=== PATIENT | male | born 1955 | race Caucasian/White ===

== ENCOUNTER 2022-03-14 11:41 | Inpatient (IN) ==
--- NOTE | 2022-03-14 12:24 | Emergency Department Note ---
Impression & Plan LLL pneumonia, Acute respiratory failure with hypoxia, Elevated troponin ED Provider Note Name: JESUS PARISH Age: 66 Sex: M Arrives Via: Walk-In Informant: Patient, ED Provider: Sherman Milligan MD Chief Complaint: Illness Impression: As per impressions above Medical Decision Making: Pleasant 66-year-old gentleman with a history of hypertension, dyslipidemia, type 2 diabetes, hypothyroidism, arthritis who arrives from outside the area for worsening weakness, confusion and shortness of breath. On arrival he is significantly hypoxic and is quite confused but after placing him on nasal cannula O2 his mental status vastly improved. On examination he is not dehydrated appearing. He does have decreased breath sounds throughout with crackles bilaterally. Laboratory work-up including blood cultures and lactate were obtained. Lactate is unremarkable and is not hypotensive. He does not meet criteria nor do I feel he is in acute septic shock. He likely does have sepsis secondary to a left lower lobe pneumonia noted on chest x-ray. However given the recent travel and the quite elevated D-dimer a CT of the chest was obtained. Fortunately this is negative for PE though does show the the left lower lobe pneumonia. Labs are negative for COVID at this time. He was given empiric IV antibiotics of cefepime for broad coverage. His magnesium is mildly low this troponin is mildly elevated. Given the acute infection I suspect the troponin is more due to infectious rather than ACS etiology and he has no chest pain at this time. He was given some fluids though he is not severely dehydrated and has a set not hypotensive is lactic acid elevated thus 30/kg not indicated at this time. On multiple reevaluations vacation awake alert oriented breathing comfortably and looks much better now that he is on oxygen. I had a long discussion regarding the findings and he is agreeable to hospitalization. is on board with this as well Triage/Nursing Notes reviewed by Me Differentials:Infection, dehydration, metabolic abnormality, hypo/hyperglycemia, electrolyte disturbance, anemia, hypoxia, cardiac sources, intracerebral event, toxicologic, neurologic, as well as other pathologies. Vital Signs: reviewed and remarkable for hypoxia Interventions: Normal saline bolus, cefepime IV Labs:Reviewed and remarkable for elevated troponin, elevated D-dimer, low magnesium Imagin view chest x-ray left lower lobe infiltrate as per radiology. CT PE study reveals left lower lobe infiltrate as per radiologist EKG:Indication confusion and weakness: 80 bpm with sinus rhythm with first- degree AV block. There is a QTC of 392. There is no ectopy nor acute ischemia. There are no previous EKGs for comparison. Cardiac/Tele Monitoring: Cardiac Monitoring: An Order was placed for continuous cardiac monitoring. The monitor shows a rate of 80with a normal sinus rhythm. Consults:Hospitalist Plan: Disposition:Hospitalization. Condition: Good History of Present Illness:66 yr old male with worsening shortness of breath over the last few days. Notes feeling lightheaded, weak and exhausted. Associated with mild cough. No fevers, chills, chest pain, back pain, abdominal pain, nausea, vomiting, headache, neck pain, leg swelling, rashes, nor other symptoms. Denies calf pain/discomfort. No medications prior to arrival. States he has been noting episodes of shortness of breath on and off over the last month or so, though admits he didn't mention that to anyone until the last 3 days. notes he is confused and not himself the last few days. They are visiting from [place]. ROS: See above HPI for pertinent positives & negatives. A total of 10 systems reviewed and were otherwise negative. Past Medical History:Hypertension, dyslipidemia, type 2 diabetes, hypothyroidism, arthritis Past Surgical History:Cholecystectomy Family History:Denies family history of DVT or PE Social History:Lives with , retired, non-smoker Home Medications:Calcium, aspirin, amlodipine, vitamin D3, losartan, glimepiride, carvedilol, gabapentin, levothyroxine, metformin, atorvastatin, glucosamine Allergies:Cipro Vitals:Blood Pressure: 140/70, Pulse 85, RR 24, T 37.2C, O2 92% on 4L NC Physical Exam: GENERAL: Patient is tired appearing and in mild distress. EYES: No scleral icterus, unremarkable pupils. ENT: Mucous membranes moist, no nasal congestion. NECK: No masses appreciated, nomeningismus, trachea is midline. RESPIRATORY: No dyspnea. Clear to auscultation and equal bilaterally. No wheeze, no rhonchi. CARDIOVASCULAR: Regular rate and rhythm.No murmurs, rubs, gallops appreciated. GASTROINTESTINAL: Abdomen soft, non-tender, no peritonitis.Bowel sounds positive.No masses appreciated. BACK: No midline tenderness, no CVA tenderness EXTREMITIES: Normal motion all extremities, no cyanosis, no edema. NEUROLOGIC: Alert and oriented, no acute motor or sensory deficits, no focal weakness, cranial nerves grossly intact. SKIN: No rash, no jaundice, no diaphoresis. PSYCH: Appropriate GCS: 15 ED Course: Times/Reassessments: Patient much improved with nasal cannula oxygen he is breathing comfortably and is no distress. He is agreeable to hospitalization Sherman Milligan MD Past Med/Surg History Surgical History (Updated 03/14/22 @ 16:23 by Leann Cook PA-C) History of ankle surgery Hx of foot surgery Left 5th metatarsal removal S/P cholecystectomy 1999 S/P surgical removal of pilonidal cyst 1996 Family History (Updated 03/14/22 @ 16:25 by Leann Cook PA-C) Sister Breast cancer Mother Diabetes Heart disease Hypertension Father Diabetes Heart disease Hypertension Brother Heart disease Hypertension Social History (Updated 03/14/22 @ 16:27 by Leann Cook PA-C) Smoking Status: Light tobacco smoker Tobacco Type: Cigars Do You Dip or Chew Tobacco: No; Hx Alcohol Use: Yes Alcohol type: other Hx Substance Use: No Preferred Language: Nigerian Communication Ability: Effective 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 Beliefs That Will Affect Care: None marital status: Current Living Situation: Spouse Feels Safe at Home: Yes Safety Concerns: Feels Safe At This Time Assistive Devices: None Allergies Allergies Allergy/AdvReac Type Severity Reaction Status Date / Time ciprofloxacin Allergy Intermediate Hives Verified 03/14/22 15:22 Home Meds Home Medications Medication Instructions Recorded Confirmed amlodipine 10 mg tablet 10 mg PO DAILY 03/14/22 03/14/22 aspirin 325 mg tablet,delayed 325 mg PO DAILY 03/14/22 03/14/22 release atorvastatin 20 mg tablet 20 mg PO HS 03/14/22 03/14/22 calcium carbonate 600 mg-vitamin 1 tab PO DAILY 03/14/22 03/14/22 D3 10 mcg (400 unit) tablet (Calcium 600 + D(3)) carvedilol 12.5 mg tablet 12.5 mg PO BID 03/14/22 03/14/22 cholecalciferol (vitamin D3) 25 25 mcg PO DAILY 03/14/22 03/14/22 mcg (1,000 unit) capsule (Vitamin D3) gabapentin 600 mg tablet 600 mg PO BID 03/14/22 03/14/22 glimepiride 4 mg tablet 4 mg PO BID 03/14/22 03/14/22 glucosamine sulf dipot 1 cap PO TID 03/14/22 03/14/22 chlr,msm,chond 550 mg-C 30 mg-cheikh 1 mg capsule (Glucosamine Chondroitin) hydrochlorothiazide 25 mg tablet 25 mg PO DAILY 03/14/22 03/14/22 insulin aspar prt-insulin aspart 37 unit SUBCUT BID 03/14/22 03/14/22 100 unit/mL (70-30) subcutaneous soln (Novolog Mix 70-30 U-100 Insuln) insulin aspart U-100 100 unit/mL 0 sliding scale dose SUBCUT ACHS 03/14/22 03/14/22 (3 mL) subcutaneous pen (Novolog Flexpen U-100 Insulin aspart) levothyroxine 88 mcg tablet 88 mcg PO DAILY 03/14/22 03/14/22 losartan 100 mg tablet 100 mg PO DAILY 03/14/22 03/14/22 metformin 500 mg tablet See Rx Instructions .ROUTE .COMPLEX 03/14/22 03/14/22 Results & Data (ED) Vital Signs Vital Signs - 24 hr 03/14/22 11:46 03/14/22 12:00 Temperature 37.2 C Temperature Source Oral Pulse Rate 93 H Pulse Rate [Apical] 85 Pulse Rhythm [Apical] Regular Pulse Strength [Apical] Normal Respiratory Rate 16 24 Respiratory Effort / Characteristics Non-Labored Other Respiratory Depth Normal Respiratory Pattern Tachypnea Blood Pressure 140/77 Blood Pressure [Left Arm] 140/70 Blood Pressure Mean 98 Blood Pressure Mean [Left Arm] 93 Blood Pressure Position [Left Arm] Lying Pulse Oximetry 92 92 Oxygen Delivery Method Room Air Nasal Cannula Oxygen Flow Rate 4 Sepsis Recent Fever Within 48 Hours No Sepsis New/Unexplained Change in Mental Status No Sepsis Action Taken by Nursing No Action Required Laboratory Data Result diagrams: 03/16/22 05:27 03/16/22 05:27 Lab Results 03/14/22 03/14/22 03/14/22 Range/Units 11:58 12:35 12:35 WBC 11.68 H (4.8-10.8) K/uL RBC 4.48 L (4.7-6.1) M/uL Hgb 12.5 L (14.0-18.0) g/dL Hct 37.9 L (42-52) % MCV 84.6 (80-100) fL MCH 27.9 (25-34) pg MCHC 33.0 (32-36) g/dL RDW Std Deviation 44.9 (36.4-46.3) fL RDW Coeff of James 14.5 (11.5-14.5) % Plt Count 258 (130-400) K/uL MPV 9.5 (7.4-10.4) fL Immature Gran % (Auto) 0.3 % Neut % (Auto) 77.1 % Lymph % (Auto) 8.8 % Faulk % (Auto) 13.4 % Eos % (Auto) 0.2 % Baso % (Auto) 0.2 % Neut # (Auto) 9.02 H (1.4-6.5) K/uL Lymph # (Auto) 1.03 L (1.2-3.4) K/uL Faulk # (Auto) 1.56 H (0.11-0.59) K/uL Eos # (Auto) 0.02 (0-0.5) K/uL Baso # (Auto) 0.02 (0-0.2) K/uL Immature Gran # (Auto) 0.03 H (0.00-0.02) K/uL PT (9.0-12.0) Seconds INR (0.9-1.1) D-Dimer (0-500) ug/L FEU VBG pH (7.36-7.41) VBG pCO2 (38-50) mmHg VBG pO2 mmHg VBG HCO3 mmol/L VBG O2 Saturation % VBG Base Excess mEq/L Sodium (136-145) mmol/L Potassium (3.5-5.1) mmol/L Chloride (98-107) mmol/L Carbon Dioxide (21-32) mmol/L Anion Gap (3-11) BUN (6-23) mg/dl Creatinine (0.6-1.4) mg/dl Est Cr Clr Drug Dosing ml/min Est GFR ( Amer) ml/min Est GFR (Non-Af Amer) ml/min BUN/Creatinine Ratio (10-20) Glucose (70-99(Fasting)) mg/dl POC Glucose 182 H (70-99) mg/dl Lactate 1.0 (0.4-2.0) mmol/L Calcium (8.5-10.1) mg/dl Magnesium (1.7-2.4) mg/dl Total Bilirubin (0.2-1.0) mg/dl Direct Bilirubin (0-0.2) mg/dl AST (13-39) U/L ALT (7-52) U/L Alkaline Phosphatase (34-104) U/L Troponin I High Sens (0-20) pg/ml Total Protein (6.0-8.3) gm/dl Albumin (3.4-5.0) gm/dl Procalcitonin (0-0.5) ng/ml SARS-CoV-2 (PCR) (Negative) Influenza Type A (PCR) (Neg) Influenza Type B (PCR) (Neg) RSV (RT-PCR) (Neg) 03/14/22 03/14/22 03/14/22 Range/Units 12:35 12:35 12:35 WBC (4.8-10.8) K/uL RBC (4.7-6.1) M/uL Hgb (14.0-18.0) g/dL Hct (42-52) % MCV (80-100) fL MCH (25-34) pg MCHC (32-36) g/dL RDW Std Deviation (36.4-46.3) fL RDW Coeff of James (11.5-14.5) % Plt Count (130-400) K/uL MPV (7.4-10.4) fL Immature Gran % (Auto) % Neut % (Auto) % Lymph % (Auto) % Faulk % (Auto) % Eos % (Auto) % Baso % (Auto) % Neut # (Auto) (1.4-6.5) K/uL Lymph # (Auto) (1.2-3.4) K/uL Faulk # (Auto) (0.11-0.59) K/uL Eos # (Auto) (0-0.5) K/uL Baso # (Auto) (0-0.2) K/uL Immature Gran # (Auto) (0.00-0.02) K/uL PT (9.0-12.0) Seconds INR (0.9-1.1) D-Dimer (0-500) ug/L FEU VBG pH 7.39 (7.36-7.41) VBG pCO2 42 (38-50) mmHg VBG pO2 37 mmHg VBG HCO3 25 mmol/L VBG O2 Saturation 66.5 % VBG Base Excess 0.3 mEq/L Sodium 132 L (136-145) mmol/L Potassium 4.5 (3.5-5.1) mmol/L Chloride 98 (98-107) mmol/L Carbon Dioxide 26 (21-32) mmol/L Anion Gap 8 (3-11) BUN 33 H (6-23) mg/dl Creatinine 1.63 H (0.6-1.4) mg/dl Est Cr Clr Drug Dosing 64.7 ml/min Est GFR ( Amer) 50.1 ml/min Est GFR (Non-Af Amer) 43.3 ml/min BUN/Creatinine Ratio 20.2 H (10-20) Glucose 204 H (70-99(Fasting)) mg/dl POC Glucose (70-99) mg/dl Lactate (0.4-2.0) mmol/L Calcium 9.2 (8.5-10.1) mg/dl Magnesium 1.6 L (1.7-2.4) mg/dl Total Bilirubin 1.0 (0.2-1.0) mg/dl Direct Bilirubin 0.2 (0-0.2) mg/dl AST 42 H (13-39) U/L ALT 35 (7-52) U/L Alkaline Phosphatase 54 (34-104) U/L Troponin I High Sens 51.1 H* (0-20) pg/ml Total Protein 7.3 (6.0-8.3) gm/dl Albumin 3.5 (3.4-5.0) gm/dl Procalcitonin 0.47 (0-0.5) ng/ml SARS-CoV-2 (PCR) (Negative) Influenza Type A (PCR) (Neg) Influenza Type B (PCR) (Neg) RSV (RT-PCR) (Neg) 03/14/22 03/14/22 Range/Units 12:35 12:44 WBC (4.8-10.8) K/uL RBC (4.7-6.1) M/uL Hgb (14.0-18.0) g/dL Hct (42-52) % MCV (80-100) fL MCH (25-34) pg MCHC (32-36) g/dL RDW Std Deviation (36.4-46.3) fL RDW Coeff of James (11.5-14.5) % Plt Count (130-400) K/uL MPV (7.4-10.4) fL Immature Gran % (Auto) % Neut % (Auto) % Lymph % (Auto) % Faulk % (Auto) % Eos % (Auto) % Baso % (Auto) % Neut # (Auto) (1.4-6.5) K/uL Lymph # (Auto) (1.2-3.4) K/uL Faulk # (Auto) (0.11-0.59) K/uL Eos # (Auto) (0-0.5) K/uL Baso # (Auto) (0-0.2) K/uL Immature Gran # (Auto) (0.00-0.02) K/uL PT 11.9 (9.0-12.0) Seconds INR 1.1 (0.9-1.1) D-Dimer 2160 H* (0-500) ug/L FEU VBG pH (7.36-7.41) VBG pCO2 (38-50) mmHg VBG pO2 mmHg VBG HCO3 mmol/L VBG O2 Saturation % VBG Base Excess mEq/L Sodium (136-145) mmol/L Potassium (3.5-5.1) mmol/L Chloride (98-107) mmol/L Carbon Dioxide (21-32) mmol/L Anion Gap (3-11) BUN (6-23) mg/dl Creatinine (0.6-1.4) mg/dl Est Cr Clr Drug Dosing ml/min Est GFR ( Amer) ml/min Est GFR (Non-Af Amer) ml/min BUN/Creatinine Ratio (10-20) Glucose (70-99(Fasting)) mg/dl POC Glucose (70-99) mg/dl Lactate (0.4-2.0) mmol/L Calcium (8.5-10.1) mg/dl Magnesium (1.7-2.4) mg/dl Total Bilirubin (0.2-1.0) mg/dl Direct Bilirubin (0-0.2) mg/dl AST (13-39) U/L ALT (7-52) U/L Alkaline Phosphatase (34-104) U/L Troponin I High Sens (0-20) pg/ml Total Protein (6.0-8.3) gm/dl Albumin (3.4-5.0) gm/dl Procalcitonin (0-0.5) ng/ml SARS-CoV-2 (PCR) NEGATIVE (Negative) Influenza Type A (PCR) Negative (Neg) Influenza Type B (PCR) Negative (Neg) RSV (RT-PCR) Negative (Neg) Administered Medications Amlodipine Besylate (Amlodipine Besylate 5 Mg Tab) 10 mg PO DAILY TIANA Stop: 04/14/22 08:59 Last Admin: 03/16/22 08:13 Dose: 10 mg Documented by: [id number] Admin: 03/15/22 08:04 Dose: 10 mg Documented by: [id number] Aspirin (Aspirin 325 Mg Ectab) 325 mg PO DAILY TIANA Stop: 04/14/22 08:59 Last Admin: 03/16/22 08:13 Dose: 325 mg Documented by: [id number] Admin: 03/15/22 08:04 Dose: 325 mg Documented by: [id number] Atorvastatin Calcium (Atorvastatin 20 Mg Tab) 20 mg PO HS TIANA Stop: 04/13/22 20:59 Last Admin: 03/15/22 20:35 Dose: 20 mg Documented by: [id number] Admin: 03/14/22 21:42 Dose: 20 mg Documented by: [id number] Carvedilol (Carvedilol 12.5 Mg Tab) 12.5 mg PO BIDM TIANA Stop: 04/13/22 20:59 Last Admin: 03/16/22 08:10 Dose: 12.5 mg Documented by: [id number] Admin: 03/15/22 16:51 Dose: 12.5 mg Documented by: [id number] Admin: 03/15/22 08:05 Dose: 12.5 mg Documented by: [id number] Admin: 03/14/22 21:43 Dose: 12.5 mg Documented by: [id number] Doxycycline Hyclate (Doxycycline Hyclate 100 Mg Cap) 100 mg PO BID TIANA Stop: 03/21/22 20:59 Last Admin: 03/16/22 08:10 Dose: 100 mg Documented by: [id number] Admin: 03/15/22 20:35 Dose: 100 mg Documented by: [id number] Admin: 03/15/22 08:05 Dose: 100 mg Documented by: [id number] Admin: 03/14/22 21:41 Dose: 100 mg Documented by: [id number] Gabapentin (Gabapentin 600 Mg Tab) 600 mg PO BID [facility] Stop: 04/13/22 20:59 Last Admin: 03/16/22 08:10 Dose: 600 mg Documented by: [id number] Admin: 03/15/22 20:34 Dose: 600 mg Documented by: [id number] Admin: 03/15/22 08:06 Dose: 600 mg Documented by: [id number] Admin: 03/14/22 21:41 Dose: 600 mg Documented by: [id number] Guaifenesin (Guaifenesin 600 Mg Tabcr) 1,200 mg PO Q12 [facility] Stop: 04/13/22 20:59 Last Admin: 03/16/22 08:12 Dose: 1,200 mg Documented by: [id number] Admin: 03/15/22 20:31 Dose: 1,200 mg Documented by: [id number] Admin: 03/15/22 08:05 Dose: 1,200 mg Documented by: [id number] Admin: 03/14/22 21:41 Dose: 1,200 mg Documented by: [id number] Heparin Sodium (Porcine) (Heparin Sod 5,000 Unit/0.5 Ml Vial) 5,000 units SQ Q12 [facility] Stop: 04/13/22 20:59 Last Admin: 03/16/22 08:14 Dose: 5,000 units Documented by: [id number] Admin: 03/15/22 20:35 Dose: 5,000 units Documented by: [id number] Admin: 03/15/22 08:07 Dose: 5,000 units Documented by: [id number] Admin: 03/14/22 21:39 Dose: 5,000 units Documented by: [id number] Cefepime HCl 2,000 mg/ Syringe 20 mls @ 5 mls/min IV Q8H [facility]; Protocol Stop: 03/21/22 21:59 Last Admin: 03/16/22 05:52 Dose: 5 mls/min Documented by: [id number] Admin: 03/15/22 21:20 Dose: 5 mls/min Documented by: [id number] Admin: 03/15/22 15:58 Dose: 5 mls/min Documented by: [id number] Admin: 03/15/22 05:18 Dose: 5 mls/min Documented by: [id number] Admin: 03/14/22 21:43 Dose: 5 mls/min Documented by: [id number] Sodium Chloride (Nss 1000ml) 1,000 mls @ 125 mls/hr IV .Q8H [facility] Stop: 03/16/22 09:29 Last Admin: 03/16/22 02:26 Dose: 125 mls/hr Documented by: [id number] Infusion: 03/16/22 01:46 Dose: 125 mls/hr Documented by: [id number] Admin: 03/15/22 17:46 Dose: 125 mls/hr Documented by: [id number] Insulin Aspart (Insulin Aspart Per Unit) 0 units SC ACHS [facility]; Protocol Stop: 04/13/22 19:59 Last Admin: 03/16/22 08:08 Dose: 11 units Documented by: [id number] Cosigned by: [id number] Admin: 03/15/22 20:50 Dose: 3 units Documented by: [id number] Cosigned by: [id number] Admin: 03/15/22 16:50 Dose: 11 units Documented by: [id number] Cosigned by: [id number] Admin: 03/15/22 11:35 Dose: 16 units Documented by: [id number] Cosigned by: [id number] Admin: 03/15/22 07:53 Dose: 7 units Documented by: [id number] Cosigned by: [id number] Admin: 03/14/22 22:14 Dose: Not Given Documented by: [id number] Insulin Human NPH (Insulin Human Nph) 10 units SC BIDM [facility]; Protocol Stop: 04/14/22 16:59 Last Admin: 03/16/22 08:52 Dose: 10 units Documented by: [id number] Cosigned by: [id number] Levothyroxine Sodium (Levothyroxine Sodium 88 Mcg Tablet) [facility]: 04/14/22 06:29 Last Admin: 03/16/22 05:43 Dose: 88 mcg Documented by: [id number] Admin: 03/15/22 05:19 Dose: 88 mcg Documented by: [id number] Losartan Potassium (Losartan Potassium 50 Mg Tab) 100 mg PO DAILY [facility] Stop: 04/14/22 08:59 Last Admin: 03/15/22 08:03 Dose: 100 mg Documented by: [id number] Multivitamins/Minerals (Calcium 600mg + Vit D 400 Iu Tab) 1 tab PO DAILY TIANA Stop: 04/14/22 08:59 Last Admin: 03/16/22 08:13 Dose: 1 tab Documented by: [id number] Admin: 03/15/22 08:06 Dose: 1 tab Documented by: [id number] Vitamin D (Cholecalciferol 1,000 Units 25 Mcg Tab) 1,000 units PO DAILY TIANA Stop: 04/14/22 08:59 Last Admin: 03/16/22 08:13 Dose: 1,000 units Documented by: [id number] Admin: 03/15/22 08:04 Dose: 1,000 units Documented by: [id number] Discontinued Medications Sodium Chloride (Nss 1000ml) 500 mls @ 999 mls/hr IV .Q31M ONE Stop: 03/14/22 14:13 Last Infusion: 03/14/22 14:37 Dose: 0 mls/hr Documented by: [id number] Admin: 03/14/22 13:50 Dose: 999 mls/hr Documented by: [id number] Cefepime HCl (Maxipime) 2,000 mg in 20 mls @ 5 mls/min IV NOW STA; Protocol Stop: 03/14/22 14:32 Last Admin: 03/14/22 15:09 Dose: 5 mls/min Documented by: [id number] Magnesium Sulfate/Dextrose (Magnesium Sulfate / D5w) 1 gm in 100 mls @ 50 ml s/hr IV ONE ONE Stop: 03/14/22 21:14 Last Infusion: 03/14/22 22:29 Dose: 0 mls/hr Documented by: [id number] Admin: 03/14/22 19:40 Dose: 50 mls/hr Documented by: [id number] Sodium Chloride (Nss 1000ml) 1,000 mls @ 75 mls/hr IV .[id number] [facility]IANA Stop: 03/15/22 08:34 Last Infusion: 03/15/22 09:49 Dose: 0 mls/hr Documented by: [id number] Admin: 03/14/22 19:41 Dose: 75 mls/hr Documented by: [id number] Insulin Aspart (Insulin Aspart Per Unit) 0 units SC TODAY@0000,0400 [facility]; Protocol Stop: 03/15/22 04:01 Last Admin: 03/15/22 04:05 Dose: Not Given Documented by: [id number] Admin: 03/14/22 23:42 Dose: Not Given Documented by: [id number] Insulin Human NPH (Insulin Human Nph) 20 units SC BIDM TIANA; Protocol Stop: 04/13/22 19:59 Last Admin: 03/14/22 23:40 Dose: Not Given Documented by: [id number] Insulin Human NPH (Insulin Human Nph) 10 units SC BIDM [facility]IANA; Protocol Stop: 04/13/22 19:59 Last Admin: 03/15/22 07:55 Dose: 10 units Documented by: [id number] Cosigned by: [id number] Insulin Human NPH (Insulin Human Nph) 0 units SC DAILY@1700 [facility]NA; Protocol Stop: 04/14/22 16:59 Last Admin: 03/15/22 16:51 Dose: 10 units Documented by: [id number] Cosigned by: [id number] Ioversol (Optiray 320 125ml) 120 ml IV ONCE ONE Stop: 03/14/22 14:03 Last Admin: 03/14/22 14:03 Dose: 120 ml Documented by: [id number] Discharge Plan Visit Data Chief Complaint: Neuro Symptoms/Deficit Stated Complaint: WEAKNESS, CONFUSION, BALANCE ISSUES Discharge Problem: LLL pneumonia, Acute respiratory failure with hypoxia, Elevated troponin Patient Disposition: Admitted As Inpatient Discharge Instructions Interventions: ED Discharge Assessment Last Done: 03/14/22 23:15
[2022-03-14 12:54] LABS: Base Excess VBG 0.3 mEq/L; HCO3 VBG 25 mmol/L; Oxygen Saturation VBG 66.5 %; PCO2 VBG 42 mmHg (38-50); PO2 VBG 37 mmHg; pH VBG 7.39 (7.36-7.41)
[2022-03-14 13:11] LABS: INR 1.1 (0.9-1.1); Prothrombin Time 11.9 Seconds (9.0-12.0)
[2022-03-14 13:12] LABS: D Dimer 2160 ug/L FEU (0-500)
[2022-03-14 13:22] LABS: Troponin I High Sensitivity 51.1 pg/ml (0-20)
--- NOTE | 2022-03-14 13:22 | CT Scan Report ---
CT head/brain wo con CLINICAL HISTORY: Confusion, ataxia COMPARISON STUDY: No previous studies for comparison. CT DOSE: 1035.81 mGycm TECHNIQUE: Standard CT of the Brain was performed without IV contrast. A dose lowering technique was utilized adhering to the principles of ALARA. FINDINGS: Extraaxial space: There is no evidence for subdural hematoma. There are no extra-axial fluid collecti ons. Ventricles and cisterns: The ventricles are mildly dilated bilaterally. There is no evidence for midl ine shift or mass effect. Parenchyma: There is no subarachnoid or intraparenchymal hemorrhage. There is no evidence for an acut e infarct or cerebral edema. There is homogeneous attenuation of the brain parenchyma. Asymmetric bas al ganglia calcification is present on the right. There are no gross mass lesions. Osseous structures: There is no evidence for an acute fracture. The visualized paranasal sinuses are clear. The mastoid air cells are clear bilaterally. Soft tissues: There is no evidence for focal soft tissue swelling. IMPRESSION: 1. No acute intracerebral pathology. ACT 112: Negative or not required by law. Electronically signed by: Brad Maddox M.D. 03/14/2022 1:21 PM
[2022-03-14 13:27] LABS: Albumin Level 3.5 gm/dl (3.4-5.0); BUN Creatinine Ratio 20.2 (10-20); Bilirubin Direct 0.2 mg/dl (0-0.2); Calcium 9.2 mg/dl (8.5-10.1); Creatinine Clr Calc Pharmacy 64.7 ml/min; Est GFR (African American) 50.1 ml/min; Est GFR (Non-African American) 43.3 ml/min; Magnesium 1.6 mg/dl (1.7-2.4); Potassium 4.5 mmol/L (3.5-5.1); Total Protein 7.3 gm/dl (6.0-8.3)
[2022-03-14] MEDS ORDERED: SODIUM CHLORIDE 0.9% 1000ML 500 ML IV ONE (13:43)
[2022-03-14 13:51] LABS: Basophils # (auto) 0.02 K/uL (0-0.2); Basophils % (auto) 0.2 %; Eosinophils # (auto) 0.02 K/uL (0-0.5); Eosinophils % (auto) 0.2 %; Hematocrit (blood only) 37.9 % (42-52); Hemoglobin 12.5 g/dL (14.0-18.0); Immature Granulocytes # (auto) 0.03 K/uL (0.00-0.02); Immature Granulocytes % (auto) 0.3 %; Lymphocytes # (auto) 1.03 K/uL (1.2-3.4); Lymphocytes % (auto) 8.8 %; Mean Corpuscular Hemoglobin 27.9 pg (25-34); Mean Corpuscular Volume 84.6 fL (80-100); Mean Platelet Volume 9.5 fL (7.4-10.4); Monocytes # (auto) 1.56 K/uL (0.11-0.59); Monocytes % (auto) 13.4 %; Neutrophils # (auto) 9.02 K/uL (1.4-6.5); Neutrophils % (auto) 77.1 %; Platelet Count 258 K/uL (130-400); RDW Coefficient of Variation 14.5 % (11.5-14.5); RDW Standard Deviation 44.9 fL (36.4-46.3); Red Blood Count 4.48 M/uL (4.7-6.1); White Blood Count 11.68 K/uL (4.8-10.8)
--- NOTE | 2022-03-14 13:55 | XRay Report ---
XR chest 1V portable CLINICAL HISTORY: shob TECHNIQUE: Single frontal radiograph of the chest was obtained. Comparison: None available at the time of this dictation. FINDINGS: No lines and tubes are seen. The cardiomediastinal silhouette is normal. Airspace opacity is in the l eft lower lung. No evidence of pleural effusion or pneumothorax. IMPRESSION: Left lower lung airspace opacity which may represent atelectasis, pneumonia, and/or aspiration. ACT 112: Negative or not required by law. Electronically signed by: Ralph Jim M.D. 03/14/2022 1:54 PM
[2022-03-14] MEDS ORDERED: OPTIRAY 320 125ml IV ONE (14:02)
[2022-03-14 14:24] LABS: Influenza A virus by PCR Negative (Neg); Influenza B virus by PCR Negative (Neg); RSV by PCR Negative (Neg); SARS CoV2 RNA(COVID-19) InHosp NEGATIVE (Negative)
[2022-03-14] MEDS ORDERED: CEFEPIME 2,000 MG/20 ML VIAL IV STA (14:29)
--- NOTE | 2022-03-14 15:18 | History & Physical Report ---
Date of Service March 14, 2022 Assessment & Plan (1) Acute respiratory failure with hypoxia: (2) LLL pneumonia: Plan: - Admit to med surg with tele - Hypoxic with o2 sats in low 80s on room air, does not wear o2 at baseline, improved to mid 90s on 4 L via NC. - Sputum culture, mucinex, duonebs QID and Q2H prn, tessalon pearls - Influenza swab neg, negative COVID - WBC at time of admission = 11.68, afebrile - BCx x 2, follow - Lactic acid = 1.0, Procalcitonin 0.47 - CXR and CTA reviewed as above showing the LLL pneumonia, no evidence of PE. - Continue antibiotic therapy with cefepime IV and doxycycline po - Elevated D-dimer of 2160, CTA is negative, will Doppler bilateral lower extremities to rule out clot with bilateral trace edema (3) HTN (hypertension): Plan: - May continue losartan, hold hydrochlorothiazide in the setting of possible CIRO, creatinine 1.63, BUN 33 however do not know baseline kidney function -Continue IVF with NSS 125 mLX2 bags with slight hyponatremia, possibly elevated creatinine (4) Elevated troponin: Plan: - Troponin is 51.1 on admission, 50.6 on recheck, trend x2 more q6h - Patient denies any acute cardiac complaints -He has underwent heart catheterization before secondary to chest pain however was never formally diagnosed with any occlusions, no stents placed, and chest pain was chalked up to anxiety attacks. -Check 2D echo -Consider cardiology consult (5) HLD (hyperlipidemia): Plan: -Continue statin therapy, check lipid panel with a.m. labs (6) Obesity (BMI 30-39.9): Plan: -Diet and exercise to be encouraged throughout hospital stay (7) DM (diabetes mellitus) type II controlled, neurological manifestation: Plan: -Hold home glimepiride and metformin, holding NovoLog 70/30 mix 37 units twice daily for now -Glycemic pharmacy consulted -Continue ISS with Accu-Fly ACHS -Check A1c with a.m. labs (8) Neuropathy: Plan: -History of such, continue gabapentin DVT PPx: - teds, scds, heparin subcu CODE: Full code-patient initially states that he would not want to be intubated however he is agreeable in the setting of requiring this due to being admitted with pneumonia. Dispo: From home, likely to remain in the hospital x 1-2 days History of Present Illness Chief Complaint: Confusion Primary Care Provider: Ty Mercado MD This is a 66 yo M with PMHx of CAD, multiple heart catheterizations without stenting or acute findings, HTN, HLD, DM II, obesity with BMI of 37, hypothyroidism, neuropathy, who presents to the hospital with worsening confusion, shortness of breath, and generalized malaise over the past week, worsening in the past 3 days. His and sister are present at bedside and support the history. His notes that they are currently in on vacation to visit his sister and typically reside in [place]. She notes that the patient has not quite been himself for the past few days. He agrees with this and states that his symptoms of shortness of breath and generalized malaise really started approximately 1 week ago, worsened within the last 3 days. He denies any fevers chills or sweats, he admits to feeling very fatigued and having difficulty doing minimal ADLs. His notes this morning he was confused to the point where he was unable to perform his own insulin injection which he typically does without any difficulties. At baseline he does not wear any supplemental O2 except for CPAP at bedtime. He is vaccinated against COVID x2 and with a booster. Patient denies any known sick contacts, and reports that he has also had a decreased appetite over the past few days. His bowels and urination habits are normal. He is currently requiring 4 L of O2 and maintaining sats in the mid 90s. This drops into the mid 80s whenever I reduced his O2 flow to 3 L at bedside with just conversation. He denies any chest pain, heaviness. He does not have any underlying lung diseases. WBC found to be 11.68, negative COVID, D-dimer is elevated at 2160, negative CTA of the chest, started on IV cefepime and will add doxycycline. Allergies Allergy/AdvReac Type Severity Reaction Status Date / Time ciprofloxacin Allergy Intermediate Hives Verified 03/14/22 15:22 Home Medications Medication Instructions Recorded Confirmed Type amlodipine 10 mg tablet 10 mg PO DAILY 03/14/22 03/14/22 History aspirin 325 mg tablet,delayed 325 mg PO DAILY 03/14/22 03/14/22 History release atorvastatin 20 mg tablet 20 mg PO HS 03/14/22 03/14/22 History calcium carbonate 600 mg-vitamin 1 tab PO DAILY 03/14/22 03/14/22 History D3 10 mcg (400 unit) tablet (Calcium 600 + D(3)) carvedilol 12.5 mg tablet 12.5 mg PO BID 03/14/22 03/14/22 History cholecalciferol (vitamin D3) 25 25 mcg PO DAILY 03/14/22 03/14/22 History mcg (1,000 unit) capsule (Vitamin D3) gabapentin 600 mg tablet 600 mg PO BID 03/14/22 03/14/22 History glimepiride 4 mg tablet 4 mg PO BID 03/14/22 03/14/22 History glucosamine sulf dipot 1 cap PO TID 03/14/22 03/14/22 History chlr,msm,chond 550 mg-C 30 mg-cheikh 1 mg capsule (Glucosamine Chondroitin) hydrochlorothiazide 25 mg tablet 25 mg PO DAILY 03/14/22 03/14/22 History insulin aspar prt-insulin aspart 37 unit SUBCUT BID 03/14/22 03/14/22 History 100 unit/mL (70-30) subcutaneous soln (Novolog Mix 70-30 U-100 Insuln) insulin aspart U-100 100 unit/mL 0 sliding scale dose SUBCUT ACHS 03/14/22 03/14/22 History (3 mL) subcutaneous pen (Novolog Flexpen U-100 Insulin aspart) levothyroxine 88 mcg tablet 88 mcg PO DAILY 03/14/22 03/14/22 History losartan 100 mg tablet 100 mg PO DAILY 03/14/22 03/14/22 History metformin 500 mg tablet See Rx Instructions .ROUTE .COMPLEX 03/14/22 03/14/22 History Past Med/Surg History Surgical History (Updated 03/14/22 @ 16:23 by Leann Cook PA-C) History of ankle surgery Hx of foot surgery Left 5th metatarsal removal S/P cholecystectomy 1999 S/P surgical removal of pilonidal cyst 1996 Family History (Updated 03/14/22 @ 16:25 by Leann Cook PA-C) Sister Breast cancer Mother Diabetes Heart disease Hypertension Father Diabetes Heart disease Hypertension Brother Heart disease Hypertension Social History (Updated 03/14/22 @ 16:27 by Leann Cook PA-C) Smoking Status: Light tobacco smoker Tobacco Type: Cigars Do You Dip or Chew Tobacco: Yes (quit years ago, no longer chews); Hx Alcohol Use: No Hx Substance Use: No marital status: Current Living Situation: Spouse Feels Safe at Home: Yes Review of Systems Review of Systems: Constitutional: No fever, sweats or chills Eyes: No diplopia, no worsening or blurred vision ENT: normal hearing, no trouble swallowing Respiratory: No cough, sputum, dyspnea at rest + dyspnea on exertion and with ADLs Cardiovascular: No chest pain, tightness or palpitations Abdomen: No pain, nausea, vomiting, diarrhea or constipation, + decreased appetite Musculoskeletal: No joint pain, calf pain, swelling Neurologic: + increased confusion this morning as per HPI. No weakness, numbness/tingling, or balance problems Psychiatric: No anxiety or depression Skin: No rash or itch Physical Exam 2 Physical Exam: General: awake, alert, no apparent distress, + obese Head: Normocephalic, atraumatic ENT: PERRL, EOMI, no pharyngeal exudate, mucous membranes are dry Chest: + crackles in the LLL but otherwise clear throughout on for L via NC with O2 sats of 96% Cardiac: Regular rate and rhythm, no murmur, no JVD, normal peripheral pulses, good capillary refill Abdominal: NABS x 4 quadrants, soft, nondistended, nontender to palpation, no rebound or guarding Extremities: Normal inspection, + trace peripheral edema BLE, no erythema, calfs nontender to palpation Psych: Normal mood and affect Neuro: AAO x 3, strength intact bilaterally and rated 5/5, no motor deficits, speech is clear, no peripheral sensory deficits Results & Data Results & Data ([facility]) Vital Signs (Past 12 Hours) Vital Signs Temp Pulse Pulse Resp BP BP Pulse Ox 03/14/22 14:46 76 24 120/50 L 96 03/14/22 13:28 79 24 130/57 L 95 03/14/22 12:46 81 16 123/66 94 03/14/22 12:00 85 24 140/70 92 03/14/22 11:46 37.2 C 93 H 16 140/77 92 Laboratory Results 03/14/22 12:35 Aerobic Blood Culture - Pending Blood Anaerobic Blood Culture - Pending 03/14/22 12:35 Aerobic Blood Culture - Pending Blood Anaerobic Blood Culture - Pending 03/14/22 03/14/22 03/14/22 12:44 12:35 12:35 WBC RBC Hgb Hct MCV MCH MCHC RDW Std Deviation RDW Coeff of James Plt Count MPV Immature Gran % (Auto) Neut % (Auto) Lymph % (Auto) [place] % (Auto) Eos % (Auto) Baso % (Auto) Neut # (Auto) Lymph # (Auto) [place] # (Auto) Eos # (Auto) Baso # (Auto) Immature Gran # (Auto) PT 11.9 INR 1.1 D-Dimer 2160 H* VBG pH 7.39 VBG pCO2 42 VBG pO2 37 VBG HCO3 25 VBG O2 Saturation 66.5 VBG Base Excess 0.3 Sodium Potassium Chloride Carbon Dioxide Anion Gap BUN Creatinine Est Cr Clr Drug Dosing Est GFR ( Amer) Est GFR (Non-Af Amer) BUN/Creatinine Ratio Glucose POC Glucose Lactate Calcium Magnesium Total Bilirubin Direct Bilirubin AST ALT Alkaline Phosphatase Troponin I High Sens Total Protein Albumin Procalcitonin SARS-CoV-2 (PCR) NEGATIVE Influenza Type A (PCR) Negative Influenza Type B (PCR) Negative RSV (RT-PCR) Negative 03/14/22 03/14/22 03/14/22 12:35 12:35 12:35 WBC 11.68 H RBC 4.48 L Hgb 12.5 L Hct 37.9 L MCV 84.6 MCH 27.9 MCHC 33.0 RDW Std Deviation 44.9 RDW Coeff of James 14.5 Plt Count 258 MPV 9.5 Immature Gran % (Auto) 0.3 Neut % (Auto) 77.1 Lymph % (Auto) 8.8 [place] % (Auto) 13.4 Eos % (Auto) 0.2 Baso % (Auto) 0.2 Neut # (Auto) 9.02 H Lymph # (Auto) 1.03 L [place] # (Auto) 1.56 H Eos # (Auto) 0.02 Baso # (Auto) 0.02 Immature Gran # (Auto) 0.03 H PT INR D-Dimer VBG pH VBG pCO2 VBG pO2 VBG HCO3 VBG O2 Saturation VBG Base Excess Sodium 132 L Potassium 4.5 Chloride 98 Carbon Dioxide 26 Anion Gap 8 BUN 33 H Creatinine 1.63 H Est Cr Clr Drug Dosing 64.7 Est GFR ( Amer) 50.1 Est GFR (Non-Af Amer) 43.3 BUN/Creatinine Ratio 20.2 H Glucose 204 H POC Glucose Lactate Calcium 9.2 Magnesium 1.6 L Total Bilirubin 1.0 Direct Bilirubin 0.2 AST 42 H ALT 35 Alkaline Phosphatase 54 Troponin I High Sens 51.1 H* Total Protein 7.3 Albumin 3.5 Procalcitonin 0.47 SARS-CoV-2 (PCR) Influenza Type A (PCR) Influenza Type B (PCR) RSV (RT-PCR) 03/14/22 03/14/22 12:35 11:58 WBC RBC Hgb Hct MCV MCH MCHC RDW Std Deviation RDW Coeff of James Plt Count MPV Immature Gran % (Auto) Neut % (Auto) Lymph % (Auto) [place] % (Auto) Eos % (Auto) Baso % (Auto) Neut # (Auto) Lymph # (Auto) [place] # (Auto) Eos # (Auto) Baso # (Auto) Immature Gran # (Auto) PT INR D-Dimer VBG pH VBG pCO2 VBG pO2 VBG HCO3 VBG O2 Saturation VBG Base Excess Sodium Potassium Chloride Carbon Dioxide Anion Gap BUN Creatinine Est Cr Clr Drug Dosing Est GFR ( Amer) Est GFR (Non-Af Amer) BUN/Creatinine Ratio Glucose POC Glucose 182 H Lactate 1.0 Calcium Magnesium Total Bilirubin Direct Bilirubin AST ALT Alkaline Phosphatase Troponin I High Sens Total Protein Albumin Procalcitonin SARS-CoV-2 (PCR) Influenza Type A (PCR) Influenza Type B (PCR) RSV (RT-PCR) Diagnostic Findings Chest X-Ray 03/14/22 12:20 XR chest 1V portable CLINICAL HISTORY: shob TECHNIQUE: Single frontal radiograph of the chest was obtained. Comparison: None available at the time of this dictation. FINDINGS: No lines and tubes are seen. The cardiomediastinal silhouette is normal. Airspace opacity is in the left lower lung. No evidence of pleural effusion or pneumothorax. IMPRESSION: Left lower lung airspace opacity which may represent atelectasis, pneumonia, and/or aspiration. ACT 112: Negative or not required by law. Electronically signed by: Ralph Jim M.D. 03/14/2022 1:[address] 03/14/22 12:34 CT head/brain wo con CLINICAL HISTORY: Confusion, ataxia COMPARISON STUDY: No previous studies for comparison. CT DOSE: 1035.81 mGycm TECHNIQUE: Standard CT of the Brain was performed without IV contrast. A dose lowering technique was utilized adhering to the principles of ALARA. FINDINGS: Extraaxial space: There is no evidence for subdural hematoma. There are no extra-axial fluid collections. Ventricles and cisterns: The ventricles are mildly dilated bilaterally. There is no evidence for midline shift or mass effect. Parenchyma: There is no subarachnoid or intraparenchymal hemorrhage. There is no evidence for an acute infarct or cerebral edema. There is homogeneous attenuation of the brain parenchyma. Asymmetric basal ganglia calcification is present on the right. There are no gross mass lesions. Osseous structures: There is no evidence for an acute fracture. The visualized paranasal sinuses are clear. The mastoid air cells are clear bilaterally. Soft tissues: There is no evidence for focal soft tissue swelling. IMPRESSION: 1. No acute intracerebral pathology. ACT 112: Negative or not required by law. Electronically signed by: Brad Maddox M.D. 03/14/2022 1:21 PM Chest CTA 03/14/22 13:38 CT angio chest PE protocol CLINICAL HISTORY: Shortness of breath COMPARISON STUDY: Portable chest from 03/14/2022 CT DOSE: 926.97 mGy.cm TECHNIQUE: CT Angio of the chest was performed.followed by image post processing with coronal, and sagittal MIP reformats. Contrast Volume: Optiray 320, 120 ml FINDINGS: Vasculature: There is homogeneous perfusion of the pulmonary vasculature bilaterally. No intraluminal filling defects or evidence for pulmonary embolus is seen. Airway: The airway is clear. No endobronchial lesion is identified. Lungs: There is a confluent alveolar opacity the left lung base extending to the left hilum bronchograms. This has the characteristics of a pneumonia. There is crowding the bronchovascular markings at the right lung base with minimal right basilar atelectasis. Centrilobular emphysematous changes are also seen. No other alveolar opacities are identified. Pleura: There is no evidence for pleural effusion. There is no evidence for pneumothorax. Mediastinum: There is no evidence for pathologic adenopathy. The heart size is within normal limits. Atherosclerotic calcifications present. The thoracic aorta is within normal limits. There is no evidence for pericardial effusion. Upper abdomen: There is a small to moderate size hiatal hernia. Osseous structures: There is no acute osseous pathology. Impression: 1. No CTA evidence for pulmonary embolus. 2. Confluent alveolar opacity with air bronchograms the left lung base posteriorly characteristic of left lower lobe pneumonia. 3. Minimal right basilar atelectasis also present. 4. Small hiatal hernia. ACT 112: Negative or not required by law. Electronically signed by: Brad Maddox M.D. 03/14/2022 3:19 PM ECG Additional Comments: 14-MAR-2022 11:57:08 [facility]-EDSTAT ROUTINE RETRIEVAL Sinus rhythm with 1st degree A-V block Minimal voltage criteria for LVH, may be normal variant Borderline ECG No previous ECGs available 25mm/s10mm/[id number] 241CID: [id number] by: REFERRED SELF Unconfirmed Vent. rate 88 BPM MS interval 212 ms QRS duration 86 ms QT/QTc 324/392 ms P-R-T axes 15 -26 65 Code Status & VTE Plan Code Status Full code Supervising Physician Co-Signing Physician Notes Patient is a 66-year-old male with history of coronary artery disease, hypertension, hyperlipidemia, diabetes mellitus and other medical problems presents with worsening shortness of breath, intermittent confusion since past 3 days duration. He also admits to have mild cough. Denies any fever, chills, sick contact. Patient was noted to be transiently confused this morning and was unable to inject insulin on his own. He has history of obstructive sleep apnea and uses CPAP at bedtime. He denies any history of COPD, asthma, chronic oxygen dependency. Currently he is oriented x3 while in ED. He was found to be hypoxic while in ED requiring supplemental oxygen to maintain saturation. Please review HPI for complete details of presentation. Blood work showed leukocytosis 11.68K, hemoglobin 12.5, D-dimer 2160, VBG fairly within normal limit, sodium 132, creatinine 1.63, glucose 204, magnesium 1.6, AST 42, troponin 51.1. Procalcitonin, lactate within normal limits. Unknown baseline creatinine levels. On exam patient is obese, no apparent distress, normocephalic atraumatic, EOMI, normal breath sounds, clear to auscultation, S1-S2, no murmur, +1 bilateral pedal edema present, abdomen soft, nontender,+ umbilical hernia, normal bowel sounds, alert, awake, oriented, grossly no focal deficits. Patient is admitted for management of acute respiratory failure with hypoxia, left lower lobe pneumonia and metabolic encephalopathy. Confusion likely secondary to hypoxia. Will start on broad-spectrum antibiotics cefepime, doxycycline. Blood cultures obtained. Gentle IV fluids. Avoid nephrotoxic agents as able. Monitor renal function. Nebs as needed. Will check ammonia level. Check resting echo. Replace electrolytes. Check venous Dopplers to rule out DVT. Continue insulin for diabetes management. Trend cardiac enzymes and repeat EKG tomorrow. I personally reviewed the record. Patient is interviewed and examined at bedside. Patient's care is coordinated with Leann Cook PA-C. Please refer to the documentation above for details of patient's presentation and for discussion of other issues.
--- NOTE | 2022-03-14 15:21 | CT Scan Report ---
CT angio chest PE protocol CLINICAL HISTORY: Shortness of breath COMPARISON STUDY: Portable chest from 03/14/2022 CT DOSE: 926.97 mGy.cm TECHNIQUE: CT Angio of the chest was performed.followed by image post processing with coronal, and s agittal MIP reformats. Contrast Volume: Optiray 320, 120 ml FINDINGS: Vasculature: There is homogeneous perfusion of the pulmonary vasculature bilaterally. No intraluminal filling defects or evidence for pulmonary embolus is seen. Airway: The airway is clear. No endobronchial lesion is identified. Lungs: There is a confluent alveolar opacity the left lung base extending to the left hilum bronchogr ams. This has the characteristics of a pneumonia. There is crowding the bronchovascular markings at t he right lung base with minimal right basilar atelectasis. Centrilobular emphysematous changes are al so seen. No other alveolar opacities are identified. Pleura: There is no evidence for pleural effusion. There is no evidence for pneumothorax. Mediastinum: There is no evidence for pathologic adenopathy. The heart size is within normal limits. Atherosclerotic calcifications present. The thoracic aorta is within normal limits. There is no evide nce for pericardial effusion. Upper abdomen: There is a small to moderate size hiatal hernia. Osseous structures: There is no acute osseous pathology. Impression: 1. No CTA evidence for pulmonary embolus. 2. Confluent alveolar opacity with air bronchograms the left lung base posteriorly characteristic of left lower lobe pneumonia. 3. Minimal right basilar atelectasis also present. 4. Small hiatal hernia. ACT 112: Negative or not required by law. Electronically signed by: Brad Maddox M.D. 03/14/2022 3:19 PM
[2022-03-14] MEDS ORDERED: PHARMACY GLYCEMIC MGMT CONSULT PRN (18:41)
[2022-03-14] MEDS ORDERED: GLUCOSE 40% GEL 15 GM TUBE PO PRN (18:41)
[2022-03-14] MEDS ORDERED: ACETAMINOPHEN 325 MG TAB PO PRN (18:41)
[2022-03-14] MEDS ORDERED: DEXTROSE 50% 50 ML SYRINGE IV PRN (18:41)
[2022-03-14] MEDS ORDERED: ONDANSETRON INJ 2 MG/ML 2 ML VIAL IV PRN (18:41)
[2022-03-14] MEDS ORDERED: GLUCOSE 10 TABS/TUBE PO PRN (18:41)
[2022-03-14] MEDS ORDERED: GLUCAGON FOR INJ 1 MG VIAL SQ PRN (18:41)
[2022-03-14] MEDS ORDERED: CARBOHYDRATES FOR HYPOGLYCEMIA PO PRN (18:41)
[2022-03-14] MEDS ORDERED: ALBUT/IPRATROP 3MG/0.5MG NEB 3 ML VIAL NEB PRN (18:46)
[2022-03-14] MEDS ORDERED: ALBUT/IPRATROP 3MG/0.5MG NEB 3 ML VIAL NEB SCH (19:00)
[2022-03-14] MEDS ORDERED: MAGNESIUM SULFATE / D5W 1 GM/100 ML BAG IV ONE (19:15)
[2022-03-14] MEDS ORDERED: SODIUM CHLORIDE 0.9% 1000ML 1,000 ML IV SCH (19:15)
[2022-03-14] MEDS ORDERED: INSULIN HUMAN NPH SC SCH (20:00)
[2022-03-14] MEDS: HEPARIN SOD 5,000 UNIT/0.5 ML VIAL SQ SCH (21:39)
[2022-03-14] MEDS: DOXYCYCLINE HYCLATE 100 MG CAP PO SCH (21:41)
[2022-03-14] MEDS: GABAPENTIN 600 MG TAB PO SCH (21:41)
[2022-03-14] MEDS: guaiFENesin 600 MG TABCR PO SCH (21:41)
[2022-03-14] MEDS: ATORVASTATIN 20 MG TAB PO SCH (21:42)
[2022-03-14] MEDS: carvediloL 12.5 MG TAB PO SCH (21:43)
[2022-03-14] MEDS: CEFEPIME 2,000 MG in SYRINGE 0 ML IV SCH (21:43)
[2022-03-14] MEDS: INSULIN ASPART PER UNIT SC SCH ×2 (22:14→23:42)
[2022-03-15] MEDS: INSULIN ASPART PER UNIT SC SCH ×5 (04:05→20:50)
[2022-03-15 05:15] LABS: Hemoglobin 11.9 g/dL (14.0-18.0); Mean Corpuscular Hemoglobin 28.5 pg (25-34); Mean Corpuscular Hgb Conc 33.1 g/dL (32-36); Mean Corpuscular Volume 86.3 fL (80-100); Platelet Count 233 K/uL (130-400); RDW Coefficient of Variation 14.3 % (11.5-14.5); RDW Standard Deviation 45.5 fL (36.4-46.3); Red Blood Count 4.17 M/uL (4.7-6.1); White Blood Count 10.78 K/uL (4.8-10.8)
[2022-03-15] MEDS: CEFEPIME 2,000 MG in SYRINGE 0 ML IV SCH ×3 (05:18→21:20)
[2022-03-15] MEDS: LEVOTHYROXINE SODIUM 88 MCG TABLET PO SCH (05:19)
[2022-03-15 05:23] LABS: Albumin Globulin Ratio 0.9 (0.9-2); Albumin Level 3.2 gm/dl (3.4-5.0); Bilirubin,Total 0.7 mg/dl (0.2-1.0); Calcium 9.3 mg/dl (8.5-10.1); Chol HDL Ratio 5.1 (0-5); Creatinine Clr Calc Pharmacy 61.3 ml/min; Est GFR (African American) 46.3 ml/min; Globulin 3.7 gm/dl (2.5-4.0); Magnesium 1.9 mg/dl (1.7-2.4); Potassium 5.3 mmol/L (3.5-5.1); Total Protein 6.9 gm/dl (6.0-8.3)
[2022-03-15 05:40] LABS: Troponin I High Sensitivity 58.5 pg/ml (0-20)
--- NOTE | 2022-03-15 07:58 | Ultrasound Report ---
US venous doppler LE BI CLINICAL HISTORY: elevated trop, edema BLE TECHNIQUE: Bilateral lower extremity real-time compression venous ultrasound with Color Doppler imagi ng. Utilizing real-time ultrasonic imaging multiple real time high-resolution ultrasonic images with compression and noncompression maneuvers of the deep venous system in addition to color doppler imagi ng were performed from the common femoral vein through the proximal calf veins. COMPARISON: None available at the time of this dictation. FINDINGS: Currently there is normal compressibility of the deep venous system from the common femoral vein thro ugh the proximal calf veins. No superficial venous thrombosis is identified. Subcutaneous edema is noted. Impression: No evidence of deep venous thrombus. ACT 112: Negative or not required by law. Electronically signed by: Ralph Jim M.D. 03/15/2022 7:56 AM
[2022-03-15] MEDS ORDERED: INSULIN HUMAN NPH SC SCH ×2 (08:00→17:00)
[2022-03-15] MEDS: ASPIRIN 325 MG ECTAB PO SCH (08:04)
[2022-03-15] MEDS: amLODIPine BESYLATE 5 MG TAB PO SCH (08:04)
[2022-03-15] MEDS: CHOLECALCIFEROL 1,000 UNITS 25 MCG TAB PO SCH (08:04)
[2022-03-15] MEDS: guaiFENesin 600 MG TABCR PO SCH ×2 (08:05→20:31)
[2022-03-15] MEDS: carvediloL 12.5 MG TAB PO SCH ×2 (08:05→16:51)
[2022-03-15] MEDS: DOXYCYCLINE HYCLATE 100 MG CAP PO SCH ×2 (08:05→20:35)
[2022-03-15] MEDS: GABAPENTIN 600 MG TAB PO SCH ×2 (08:06→20:34)
[2022-03-15] MEDS: CALCIUM 600MG + VIT D 400 IU TAB PO SCH (08:06)
[2022-03-15] MEDS: HEPARIN SOD 5,000 UNIT/0.5 ML VIAL SQ SCH ×2 (08:07→20:35)
[2022-03-15] MEDS ORDERED: LOSARTAN POTASSIUM 50 MG TAB PO SCH (09:00)
[2022-03-15 09:01] LABS: Estimated Average Glucose 171 mg/dl; Hemoglobin A1C 7.6 % (4.5-5.6)
--- NOTE | 2022-03-15 10:37 | Pharmacy Report ---
Pharmacy Glycemic Short Note 2 - Date of Service March 15, 2022 - Glycemic Short BSG Results (Last 24 hours): 03/14/22 03/14/22 03/14/22 11:58 12:35 22:00 Glucose 204 H POC Glucose 182 H 120 H 03/14/22 03/15/22 03/15/22 23:24 03:56 04:49 Glucose 98 POC Glucose 109 H 103 H 03/15/22 07:28 Glucose POC Glucose 98 OUTPATIENT ANTIDIABETIC REGIMEN: * Novolog 70-30 mix 37 units BIDWM * Novolog sliding scale with meals for BSG >200mg/dL HbA1C: 7.6 (03/15) ASSESSMENT: * Patient is a well controlled type 2 diabetic admitted with pneumonia. Pharmacy consulted to assist with glycemic management. * Basal (70/30) converted to NPH on admission last evening (~weight/stress 2), however NPH was not documented as given. BSGs down into low 100s, 98mg/dL this AM. * Patient is tolerating a diet, on antibiotics, and NS @ 75ml/hr. SCr - 1.74mg/dL (unknown baseline). * Plan for a reduced dose of NPH this AM (10 units) given BSGs this morning. NPH evening scale. * Bolus insulin: Novolog per scale (~weight/stress of 2); may need loosened pending BSGs throughout the day PLAN FOR INPATIENT GLYCEMIC CONTROL: * Hold outpatient oral diabetes medications * Basal insulin * NPH 10 units with breakfast, evening scale with dinner * Bolus insulin * NovoLog per scale ACHS or Q6hrs while NPO * Goal Range: Low 110 mg/dL - High 140 mg/dL * Correction Factor: 20 mg/dL/unit * Nutritional / Prandial insulin per carb ratio of 1 unit per 6 grams CHO consumed
[2022-03-15 16:23] LABS: Appearance Urine Cloudy (Clear); Bacteria Urine Automated Negative (Negative); Bilirubin Urine Negative (Negative); Blood Urine 3+ (Negative); Color Urine Dark Yellow; Epithelial Cell Urine Auto >30 /lpf (0-5); Glucose Urine UA Negative (Negative); Ketones Urine Trace (Negative); Leukocyte Esterase Urine Negative (Negative); Nitrite Urine Negative (Negative); Protein Urine 2+ (Negative); Specific Gravity Urine 1.036 (1.000-1.030); Urobilinogen Urine Negative (Negative); pH Urine 5.5 (4.5-7.5)
[2022-03-15 16:43] LABS: Mucus Urine Present (None Prsent)
[2022-03-15 16:46] LABS: Amorphous Sediment Urine Present (None Prsent)
--- NOTE | 2022-03-15 17:00 | Hospitalist Progress Note ---
Date of Service March 15, 2022 Assessment & Plan (1) Acute respiratory failure with hypoxia: Plan: continues on supplemental oxygen for persistent hypoxia that is improved. Continue to encourage movement out of bed. Wean as tolerated (2) LLL pneumonia: Plan: Diabetic man with community-acquired pneumonia. Flu and COVID are negative. Sputum culture pending although patient has no cough at this time and is unable to expectorate sputum per his report. He feels much better today on IV antibiotics. No blood clot in the chest or legs with work-up. Continue antibiotics and supportive care. Pneumovax considered. (3) HTN (hypertension): Plan: hold losartan and HCTZ for the time being. BP is controlled. Cont to monitor on telemetry . (4) Elevated troponin: Plan: elevated trop suggestive of demand ischemia in setting of acute pulmonary infection. echo reveals no acute wall motion abnormalities. patient denies chest pain/SOB no further workup at this time. (5) HLD (hyperlipidemia): Plan: chronic, stable. Cont statin therapy per home regimen. (6) Obesity (BMI 30-39.9): Plan: -Diet and exercise to be encouraged throughout hospital stay (7) DM (diabetes mellitus) type II controlled, neurological manifestation: Plan: -Hold home glimepiride and metformin, holding NovoLog 70/30 mix 37 units twice daily for now -Glycemic pharmacy consulted -Continue ISS with Accu-Cheks ACHS -A1C 7.6 with goal <7.0. Encourage close follow-up wtih his PCP regarding being more aggressive with therapy and lifestyle modifications. (8) Neuropathy: Plan: chronic, controlled, cont gabapentin per home regimen. (9) CIRO (acute kidney injury): Plan: Creat still elevated. Cont holding HCTZ, and will also hold losartan. Urine studies. Will give a small amount of IVF overnight and trend creat in am. He is now eating and drinking better and feeling better. (10) DVT prophylaxis: Plan: Heparin full code Dispo-cont hospitalization pending resolution of hypoxia, pending PT/OT recommendations. Pt is from [place] (the [facility]) and needs to travel back after discharge. 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 Maricarmen Rose [facility] and [facility]ticipated Discharge Date Admission Date: March 14, 2022 Subjective 66-year-old man presents with acute hypoxia and shortness of breath x3 to 4 days. Work-up revealed left lower lobe pneumonia. He is remained afebrile overnight with improvement clinically on IV antibiotics. Notably per patient was not given home CPAP last night. The machine remains in the room on the shelf. Order was placed for this to happen tonight. The patient denies any coughing or other chest pain. He is not having any productive sputum. He is tolerating p.o. Review of Systems Review of Systems: All systems reviewed negative except as indicated above. Physical Exam Physical Exam: CONSTITUTIONAL: Obese, vitals as above, generally well- appearing, NAD EYES: normal conjunctivae, no scleral icterus ENT: external ear and nose normal, MMM NECK: trachea midline, RESPIRATORY: clear to auscultation bilaterally, decreased breath sounds at left base, no crackles, rales or wheezes, normal respiratory effort CARDIOVASCULAR: regular rate and rhythm, S1 and 2 heard without murmurs, gallops or rubs, no JVD, no peripheral edema CHEST: inspection of chest was normal GASTROINTESTINAL: soft, nontender, ND, no guarding MUSCULOSKELETAL: strength 5/5 throughout, head is normocephalic and atraumatic, neck supple, normal palpation of chest wall without tenderness SKIN: warm and dry NEUROLOGIC: CN 2-12 grossly intact, no sensory deficit, normal cognition, normal speech, no tremor PSYCHIATRIC: alert cooperative and oriented to person, place and time. Results & Data Results & Data ([facility]) Vital Signs (Past 12 Hours) Vital Signs Temp Pulse Resp BP BP Pulse Ox 03/15/22 11:31 37 C 66 18 115/59 L 94 03/15/22 08:00 78 106/53 L Laboratory Results Short CBC 03/15/22 Range/Units 04:49 WBC 10.78 (4.8-10.8) K/uL Hgb 11.9 L (14.0-18.0) g/dL Hct 36.0 L (42-52) % Plt Count 233 (130-400) K/uL BMP 03/15/22 04:49 Sodium 135 L Potassium 5.3 H Chloride 102 Carbon Dioxide 27 BUN 33 H Creatinine 1.74 H Glucose 98 Calcium 9.3 Liver Function 03/15/22 Range/Units 04:49 Total Bilirubin 0.7 (0.2-1.0) mg/dl AST 53 H (13-39) U/L ALT 35 (7-52) U/L Alkaline Phosphatase 50 (34-104) U/L Albumin 3.2 L (3.4-5.0) gm/dl Urine 03/15/22 Range/Units 15:30 Urine Color Dark Yellow Urine Appearance Cloudy A (Clear) Urine pH 5.5 (4.5-7.5) Ur Specific [place] 1.036 H (1.000-1.030) Urine Protein 2+ H (Negative) Urine Glucose (UA) Negative (Negative) Diagnostic Findings Venous Doppler Study 03/14/22 16:03 US venous doppler LE BI CLINICAL HISTORY: elevated trop, edema BLE TECHNIQUE: Bilateral lower extremity real-time compression venous ultrasound with Color Doppler imaging. Utilizing real-time ultrasonic imaging multiple real time high-resolution ultrasonic images with compression and noncompression maneuvers of the deep venous system in addition to color doppler imaging were performed from the common femoral vein through the proximal calf veins. COMPARISON: None available at the time of this dictation. FINDINGS: Currently there is normal compressibility of the deep venous system from the common femoral vein through the proximal calf veins. No superficial venous thrombosis is identified. Subcutaneous edema is noted. Impression: No evidence of deep venous thrombus. ACT 112: Negative or not required by law. Electronically signed by: Ralph Jim M.D. 03/15/2022 7:56 AM Medications Administered Current Inpatient Medications Acetaminophen (Acetaminophen 325 Mg Tab) 650 mg PO Q4H PRN PRN Reason: Moderate Pain Stop: 04/13/22 18:40 Albuterol (Albut/Ipratrop 3mg/0.5mg Neb 3 Ml Vial) 3 ml NEB Q4R PRN; Protocol PRN Reason: Shortness Of Breath Or Wheezing Stop: 04/13/22 18:59 Amlodipine Besylate (Amlodipine Besylate 5 Mg Tab) 10 mg PO DAILY [facility] Stop: 04/14/22 08:59 Last Admin: 03/15/22 08:04 Dose: 10 mg Documented by: Aspirin (Aspirin 325 Mg Ectab) 325 mg PO DAILY [facility] Stop: 04/14/22 08:59 Last Admin: 03/15/22 08:04 Dose: 325 mg Documented by: Atorvastatin Calcium (Atorvastatin 20 Mg Tab) 20 mg PO HS [facility] Stop: 04/13/22 20:59 Last Admin: 03/14/22 21:42 Dose: 20 mg Documented by: Carvedilol (Carvedilol 12.5 Mg Tab) 12.5 mg PO BIDM [facility] Stop: 04/13/22 20:59 Last Admin: 03/15/22 16:51 Dose: 12.5 mg Documented by: Dextrose (Dextrose 50% 50 Ml Syringe) 25 - 50 ml IV UD PRN; Protocol PRN Reason: Hypoglycemia Protocol Stop: 04/13/22 18:40 Doxycycline Hyclate (Doxycycline Hyclate 100 Mg Cap) 100 mg PO BID [facility] Stop: 03/21/22 20:59 Last Admin: 03/15/22 08:05 Dose: 100 mg Documented by: Gabapentin (Gabapentin 600 Mg Tab) 600 mg PO BID [facility] Stop: 04/13/22 20:59 Last Admin: 03/15/22 08:06 Dose: 600 mg Documented by: Glucagon (Glucagon For Inj 1 Mg Vial) 1 mg SQ UD PRN; Protocol PRN Reason: Hypoglycemia Protocol Stop: 04/13/22 18:40 Glucose (Glucose 10 Tabs/Tube) 4 - 8 tabs PO UD PRN; Protocol PRN Reason: Hypoglycemia Protocol Stop: 04/13/22 18:40 Glucose (Glucose 40% Gel 15 Gm Tube) 15 - 30 gm PO UD PRN; Protocol PRN Reason: Hypoglycemia Protocol Stop: 04/13/22 18:40 Guaifenesin (Guaifenesin 600 Mg Tabcr) 1,200 mg PO Q12 [facility] Stop: 04/13/22 20:59 Last Admin: 03/15/22 08:05 Dose: 1,200 mg Documented by: Heparin Sodium (Porcine) (Heparin Sod 5,000 Unit/0.5 Ml Vial) 5,000 units SQ Q12 [facility] Stop: 04/13/22 20:59 Last Admin: 03/15/22 08:07 Dose: 5,000 units Documented by: Cefepime HCl 2,000 mg/ Syringe 20 mls @ 5 mls/min IV Q8H [facility]; Protocol Stop: 03/21/22 21:59 Last Admin: 03/15/22 15:58 Dose: 5 mls/min Documented by: Insulin Aspart (Insulin Aspart Per Unit) 0 units SC ACHS [facility]; Protocol Stop: 04/13/22 19:59 Last Admin: 03/15/22 16:50 Dose: 11 units Documented by: Insulin Human NPH (Insulin Human Nph) 0 units SC DAILY@1700 [facility]; Protocol Stop: 04/14/22 16:59 Last Admin: 03/15/22 16:51 Dose: 10 units Documented by: Levothyroxine Sodium (Levothyroxine Sodium 88 Mcg Tablet) 88 mcg PO DAILYBB [facility] Stop: 04/14/22 06:29 Last Admin: 03/15/22 05:19 Dose: 88 mcg Documented by: Losartan Potassium (Losartan Potassium 50 Mg Tab) 100 mg PO DAILY [facility] Stop: 04/14/22 08:59 Last Admin: 03/15/22 08:03 Dose: 100 mg Documented by: Miscellaneous (Carbohydrates For Hypoglycemia ) 15 - 30 gm PO UD PRN PRN Reason: Hypoglycemia Protocol Stop: 04/13/22 18:40 Miscellaneous Information (Pharmacy Glycemic Mgmt Consult) 1 ea N/A UD PRN; Protocol PRN Reason: Consult Stop: 04/13/22 18:40 Multivitamins/Minerals (Calcium 600mg + Vit D 400 Iu Tab) 1 tab PO DAILY [facility] Stop: 04/14/22 08:59 Last Admin: 03/15/22 08:06 Dose: 1 tab Documented by: Ondansetron HCl (Ondansetron Inj 2 Mg/Ml 2 Ml Vial) 4 mg IV Q4H PRN PRN Reason: Nausea And Vomiting Stop: 04/13/22 18:40 Vitamin D (Cholecalciferol 1,000 Units 25 Mcg Tab) 1,000 units PO DAILY [facility] Stop: 04/14/22 08:59 Last Admin: 03/15/22 08:04 Dose: 1,000 units Documented by:
[2022-03-15] MEDS: SODIUM CHLORIDE 0.9% 1000ML 1,000 ML IV SCH (17:46)
[2022-03-15 18:33] LABS: Creatinine Urine Random 191.3 mg/dl
[2022-03-15] MEDS: ATORVASTATIN 20 MG TAB PO SCH (20:35)
--- NOTE | 2022-03-15 22:41 | Electrocardiogram Report ---
Test Reason : Blood Pressure : / mmHG Vent. Rate : 088 BPM Atrial Rate : 088 BPM P-R Int : 212 ms QRS Dur : 086 ms QT Int : 324 ms P-R-T Axes : 015 -26 065 degrees QTc Int : 392 ms Sinus rhythm with 1st degree A-V block Minimal voltage criteria for LVH, may be normal variant Borderline ECG No previous ECGs available Confirmed by Cuco Olivares ([id number]) on 03/15/2022 10:41:12 PM Referred By: REFERRED SELF Confirmed By:Cuco Olivares
[2022-03-16] MEDS: SODIUM CHLORIDE 0.9% 1000ML 1,000 ML IV SCH (02:26)
[2022-03-16] MEDS: LEVOTHYROXINE SODIUM 88 MCG TABLET PO SCH (05:43)
[2022-03-16] MEDS: CEFEPIME 2,000 MG in SYRINGE 0 ML IV SCH ×3 (05:43→14:51)
[2022-03-16 05:46] LABS: Hematocrit (blood only) 35.9 % (42-52); Hemoglobin 11.6 g/dL (14.0-18.0); Mean Corpuscular Hemoglobin 27.4 pg (25-34); Mean Corpuscular Hgb Conc 32.3 g/dL (32-36); Mean Corpuscular Volume 84.9 fL (80-100); Mean Platelet Volume 8.8 fL (7.4-10.4); Platelet Count 247 K/uL (130-400); RDW Coefficient of Variation 14.6 % (11.5-14.5); RDW Standard Deviation 45.5 fL (36.4-46.3); Red Blood Count 4.23 M/uL (4.7-6.1); White Blood Count 9.45 K/uL (4.8-10.8)
[2022-03-16 06:07] LABS: BUN Creatinine Ratio 24.3 (10-20); Calcium 9.1 mg/dl (8.5-10.1); Creatinine Clr Calc Pharmacy 70.2 ml/min; Est GFR (African American) 54.6 ml/min; Est GFR (Non-African American) 47.1 ml/min; Potassium 4.6 mmol/L (3.5-5.1)
--- NOTE | 2022-03-16 07:29 | Electrocardiogram Report ---
Test Reason : Blood Pressure : / mmHG Vent. Rate : 077 BPM Atrial Rate : 077 BPM P-R Int : 218 ms QRS Dur : 094 ms QT Int : 340 ms P-R-T Axes : 091 -25 034 degrees QTc Int : 384 ms Sinus rhythm with 1st degree A-V block Minimal voltage criteria for LVH, may be normal variant Borderline ECG When compared with ECG of 14-MAR-2022 11:57, No significant change was found Confirmed by Cuco Olivares ([id number]) on 03/16/2022 7:29:14 AM Referred By: REFERRED SELF Confirmed By:Cuco Olivares
--- NOTE | 2022-03-16 07:52 | Hospitalist Progress Note ---
Date of Service March 16, 2022 Assessment & Plan (1) Acute respiratory failure with hypoxia: Plan: continues on supplemental oxygen for persistent hypoxia that is improved. Continue to encourage movement out of bed. Wean as tolerated (2) LLL pneumonia: Plan: Diabetic man with community-acquired pneumonia. Flu and COVID are negative. Sputum culture pending although patient has no cough at this time and is unable to expectorate sputum per his report. He feels much better today on IV antibiotics. TRansition to PO. No blood clot in the chest or legs with work- up. Continue antibiotics and supportive care. Cont to encourage ambulation. (3) HTN (hypertension): Plan: hold losartan and HCTZ for the time being. BP is controlled. Cont to monitor on telemetry . (4) Elevated troponin: Plan: elevated trop suggestive of demand ischemia in setting of acute pulmonary infection. echo reveals no acute wall motion abnormalities. patient denies chest pain/SOB no further workup at this time. (5) HLD (hyperlipidemia): Plan: chronic, stable. Cont statin therapy per home regimen. (6) Obesity (BMI 30-39.9): Plan: -Diet and exercise to be encouraged throughout hospital stay (7) DM (diabetes mellitus) type II controlled, neurological manifestation: Plan: -Hold home glimepiride and metformin, holding NovoLog 70/30 mix 37 units twice daily for now -Glycemic pharmacy consulted -Continue ISS with Accu-Cheks ACHS -A1C 7.6 with goal <7.0. Encourage close follow-up wtih his PCP regarding being more aggressive with therapy and lifestyle modifications. (8) Neuropathy: Plan: chronic, controlled, cont gabapentin per home regimen. (9) CIRO (acute kidney injury): Plan: Creat improved 1.7 to 1.5. FeNa is 0.4% indicating pre-renal azotemia. Possibly 2/2 hypovolemia although patient appears euvolemic and is eating well now. Was on diuretic and IVF have been given over the past two days. Diuretics and losartan held, and patient also received contrast two days ago so we may be seeing a contrast induced nephropathy to a certain extent. As we are improving, finish IVF bag today and repeat BMP in am. (10) DVT prophylaxis: Plan: Heparin full code Dispo-cont hospitalization pending resolution of hypoxia, pending PT/OT recommendations. Pt is from [place] ([facility]) and needs to travel back after discharge. 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 DO Myra Orourke Hospitalist Admission and Anticipated Discharge Date Admission Date: March 14, 2022 Subjective 66-year-old man presents with acute hypoxia and pneumonia he is afebrile still hypoxic and weak cont to encourage ambulation denies chest pain, SOB, cough Review of Systems Review of Systems: All systems reviewed negative except as indicated above. Physical Exam Physical Exam: CONSTITUTIONAL: Obese, vitals as above, generally well- appearing, NAD EYES: normal conjunctivae, no scleral icterus ENT: external ear and nose normal, MMM NECK: trachea midline, RESPIRATORY: clear to auscultation bilaterally, decreased breath sounds at left base, no crackles, rales or wheezes, normal respiratory effort CARDIOVASCULAR: regular rate and rhythm, S1 and 2 heard without murmurs, gallops or rubs, no JVD, no peripheral edema CHEST: inspection of chest was normal GASTROINTESTINAL: soft, nontender, ND, no guarding MUSCULOSKELETAL: strength 5/5 throughout, head is normocephalic and atraumatic, neck supple, normal palpation of chest wall without tenderness SKIN: warm and dry NEUROLOGIC: CN 2-12 grossly intact, no sensory deficit, normal cognition, normal speech, no tremor PSYCHIATRIC: alert cooperative and oriented to person, place and time. Results & Data Results & Data ([facility]) Vital Signs (Past 12 Hours) Vital Signs Temp Pulse Pulse Resp BP BP Pulse Ox 03/16/22 05:00 64 21 132/63 89 L 03/16/22 04:30 66 21 91 03/16/22 04:17 65 21 101/71 91 03/16/22 04:00 37.0 C 58 L 66 1 L 101/71 92 03/16/22 03:30 58 L 3 L 93 03/16/22 03:01 60 14 91/54 L 93 03/16/22 03:00 59 L 19 93 03/16/22 02:30 68 23 91 03/16/22 02:00 65 21 94 03/16/22 01:30 59 L 24 100 03/16/22 01:00 60 20 94 03/16/22 00:30 60 26 H 90 03/16/22 00:01 100/65 89 L 03/16/22 00:00 71 89 L 03/15/22 23:59 37.0 C 68 18 100/65 90 03/15/22 23:30 64 24 92 03/15/22 23:01 67 19 99/55 L 03/15/22 23:00 68 26 H 03/15/22 22:55 03/15/22 22:30 60 17 93 03/15/22 22:01 68 26 H 110/56 L 87 L 03/15/22 21:30 69 18 95 03/15/22 21:00 70 23 123/61 92 03/15/22 20:30 70 21 91 03/15/22 20:00 37.0 C 67 68 26 H 108/58 L 108/58 L 90 Pulse Ox 03/16/22 05:00 03/16/22 04:30 03/16/22 04:17 03/16/22 04:00 03/16/22 03:30 03/16/22 03:01 03/16/22 03:00 03/16/22 02:30 03/16/22 02:00 03/16/22 01:30 03/16/22 01:00 03/16/22 00:30 03/16/22 00:01 03/16/22 00:00 90 03/15/22 23:59 03/15/22 23:30 03/15/22 23:01 03/15/22 23:00 03/15/22 22:55 90 03/15/22 22:30 03/15/22 22:01 03/15/22 21:30 03/15/22 21:00 03/15/22 20:30 03/15/22 20:00 Laboratory Results Short CBC 03/14/22 03/16/22 Range/Units 12:35 05:27 WBC 9.45 (4.8-10.8) K/uL Hgb 11.6 L (14.0-18.0) g/dL Hct 35.9 L (42-52) % Plt Count 247 (130-400) K/uL Creatinine 1.63 H (0.6-1.4) mg/dl BMP 03/16/22 05:27 Sodium 135 L Potassium 4.6 Chloride 103 Carbon Dioxide 25 BUN 37 H Creatinine 1.52 H Glucose 89 Calcium 9.1 Urine 03/15/22 Range/Units 15:30 Urine Color Dark Yellow Urine Appearance Cloudy A (Clear) Urine pH 5.5 (4.5-7.5) Ur Specific [place] 1.036 H (1.000-1.030) Urine Protein 2+ H (Negative) Urine Glucose (UA) Negative (Negative) Medications Administered Current Inpatient Medications Acetaminophen (Acetaminophen 325 Mg Tab) 650 mg PO Q4H PRN PRN Reason: Moderate Pain Stop: 04/13/22 18:40 Albuterol (Albut/Ipratrop 3mg/0.5mg Neb 3 Ml Vial) 3 ml NEB Q4R PRN; Protocol PRN Reason: Shortness Of Breath Or Wheezing Stop: 04/13/22 18:59 Amlodipine Besylate (Amlodipine Besylate 5 Mg Tab) 10 mg PO DAILY [facility] Stop: 04/14/22 08:59 Last Admin: 03/15/22 08:04 Dose: 10 mg Documented by: Aspirin (Aspirin 325 Mg Ectab) 325 mg PO DAILY [facility] Stop: 04/14/22 08:59 Last Admin: 03/15/22 08:04 Dose: 325 mg Documented by: Atorvastatin Calcium (Atorvastatin 20 Mg Tab) 20 mg PO HS [facility] Stop: 04/13/22 20:59 Last Admin: 03/15/22 20:35 Dose: 20 mg Documented by: Carvedilol (Carvedilol 12.5 Mg Tab) 12.5 mg PO BIDM [facility] Stop: 04/13/22 20:59 Last Admin: 03/15/22 16:51 Dose: 12.5 mg Documented by: Dextrose (Dextrose 50% 50 Ml Syringe) 25 - 50 ml IV UD PRN; Protocol PRN Reason: Hypoglycemia Protocol Stop: 04/13/22 18:40 Doxycycline Hyclate (Doxycycline Hyclate 100 Mg Cap) 100 mg PO BID [facility] Stop: 03/21/22 20:59 Last Admin: 03/15/22 20:35 Dose: 100 mg Documented by: Gabapentin (Gabapentin 600 Mg Tab) 600 mg PO BID [facility] Stop: 04/13/22 20:59 Last Admin: 03/15/22 20:34 Dose: 600 mg Documented by: Glucagon (Glucagon For Inj 1 Mg Vial) 1 mg SQ UD PRN; Protocol PRN Reason: Hypoglycemia Protocol Stop: 04/13/22 18:40 Glucose (Glucose 10 Tabs/Tube) 4 - 8 tabs PO UD PRN; Protocol PRN Reason: Hypoglycemia Protocol Stop: 04/13/22 18:40 Glucose (Glucose 40% Gel 15 Gm Tube) 15 - 30 gm PO UD PRN; Protocol PRN Reason: Hypoglycemia Protocol Stop: 04/13/22 18:40 Guaifenesin (Guaifenesin 600 Mg Tabcr) 1,200 mg PO Q12 [facility] Stop: 04/13/22 20:59 Last Admin: 03/15/22 20:31 Dose: 1,200 mg Documented by: Heparin Sodium (Porcine) (Heparin Sod 5,000 Unit/0.5 Ml Vial) 5,000 units SQ Q12 [facility] Stop: 04/13/22 20:59 Last Admin: 03/15/22 20:35 Dose: 5,000 units Documented by: Cefepime HCl 2,000 mg/ Syringe 20 mls @ 5 mls/min IV Q8H [facility]; Protocol Stop: 03/21/22 21:59 Last Admin: 03/16/22 05:52 Dose: 5 mls/min Documented by: Sodium Chloride (Nss 1000ml) 1,000 mls @ 125 mls/hr IV .Q8H [facility] Stop: 03/16/22 09:29 Last Admin: 03/16/22 02:26 Dose: 125 mls/hr Documented by: Insulin Aspart (Insulin Aspart Per Unit) 0 units SC ACHS [facility]; Protocol Stop: 04/13/22 19:59 Last Admin: 03/15/22 20:50 Dose: 3 units Documented by: Insulin Human NPH (Insulin Human Nph) 0 units SC DAILY@1700 [facility]; Protocol Stop: 04/14/22 16:59 Last Admin: 03/15/22 16:51 Dose: 10 units Documented by: Levothyroxine Sodium (Levothyroxine S[facility] 88 [facility]g Tablet) [facility]: 04/14/22 06:29 Last Admin: 03/16/22 05:43 Dose: 88 mcg Documented by: Losartan Potassium (Losartan Potassium 50 Mg Tab) 100 mg PO DAILY [facility] Stop: 04/14/22 08:59 Last Admin: 03/15/22 08:03 Dose: 100 mg Documented by: Miscellaneous (Carbohydrates For Hypoglycemia ) 15 - 30 gm PO UD PRN PRN Reason: Hypoglycemia Protocol Stop: 04/13/22 18:40 Miscellaneous Information (Pharmacy Glycemic Mgmt Consult) 1 ea N/A UD PRN; Protocol PRN Reason: Consult Stop: 04/13/22 18:40 Multivitamins/Minerals (Calcium 600mg + Vit D 400 Iu Tab) 1 tab PO DAILY [facility] Stop: 04/14/22 08:59 Last Admin: 03/15/22 08:06 Dose: 1 tab Documented by: Ondansetron HCl (Ondansetron Inj 2 Mg/Ml 2 Ml Vial) 4 mg IV Q4H PRN PRN Reason: Nausea And Vomiting Stop: 04/13/22 18:40 Vitamin D (Cholecalciferol 1,000 Units 25 Mcg Tab) 1,000 units PO DAILY [facility] Stop: 04/14/22 08:59 Last Admin: 03/15/22 08:04 Dose: 1,000 units Documented by:
[2022-03-16] MEDS: INSULIN ASPART PER UNIT SC SCH ×4 (08:08→20:15)
[2022-03-16] MEDS: DOXYCYCLINE HYCLATE 100 MG CAP PO SCH (08:10)
[2022-03-16] MEDS: carvediloL 12.5 MG TAB PO SCH ×2 (08:10→16:45)
[2022-03-16] MEDS: GABAPENTIN 600 MG TAB PO SCH ×2 (08:10→20:02)
[2022-03-16] MEDS: guaiFENesin 600 MG TABCR PO SCH ×2 (08:12→20:02)
[2022-03-16] MEDS: amLODIPine BESYLATE 5 MG TAB PO SCH (08:13)
[2022-03-16] MEDS: CALCIUM 600MG + VIT D 400 IU TAB PO SCH (08:13)
[2022-03-16] MEDS: ASPIRIN 325 MG ECTAB PO SCH (08:13)
[2022-03-16] MEDS: CHOLECALCIFEROL 1,000 UNITS 25 MCG TAB PO SCH (08:13)
[2022-03-16] MEDS: HEPARIN SOD 5,000 UNIT/0.5 ML VIAL SQ SCH ×2 (08:14→20:01)
[2022-03-16] MEDS ORDERED: INSULIN HUMAN NPH SC SCH ×3 (08:30→17:00)
--- NOTE | 2022-03-16 11:53 | Pharmacy Report ---
Pharmacy Glycemic Short Note 2 - Date of Service March 16, 2022 - Glycemic Short BSG Results (Last 24 hours): 03/15/22 03/15/22 03/16/22 16:17 20:41 05:27 Glucose 89 POC Glucose 159 H 188 H 03/16/22 03/16/22 07:58 11:20 Glucose POC Glucose 113 H 255 H OUTPATIENT ANTIDIABETIC REGIMEN: * Novolog 70-30 mix 37 units BIDWM * Novolog sliding scale with meals for BSG >200mg/dL HbA1C: 7.6 (03/15) ASSESSMENT: 03/16: * BSGs [phone] the last 24h. Fasting - 113mg/dL which is within goal. Received 20 units of basal and 37 units of bolus insulin yesterday. * Stressors stable * No change to NPH * Novolog parameters tightened to 15/5 at lunch 03/15: * Patient is a well controlled type 2 diabetic admitted with pneumonia. Pharmacy consulted to assist with glycemic management. * Basal (70/30) converted to NPH on admission last evening (~weight/stress 2), however NPH was not documented as given. BSGs down into low 100s, 98mg/dL this AM. * Patient is tolerating a diet, on antibiotics, and NS @ 75ml/hr. SCr - 1.74mg/dL (unknown baseline). * Plan for a reduced dose of NPH this AM (10 units) given BSGs this morning. NPH evening scale. * Bolus insulin: Novolog per scale (~weight/stress of 2); may need loosened pending BSGs throughout the day PLAN FOR INPATIENT GLYCEMIC CONTROL: * Hold outpatient oral diabetes medications * Basal insulin * NPH 10 units SQ BID * Bolus insulin * NovoLog per scale ACHS or Q6hrs while NPO * Goal Range: Low 110 mg/dL - High 140 mg/dL * Correction Factor: 15 mg/dL/unit * Nutritional / Prandial insulin per carb ratio of 1 unit per 5 grams CHO consumed
[2022-03-16] MEDS: AMOXICILLIN/CLAVULANATE 875 MG TAB PO SCH (16:45)
[2022-03-16] MEDS: AZITHROMYCIN 250 MG TAB PO SCH (16:45)
[2022-03-16] MEDS: ATORVASTATIN 20 MG TAB PO SCH (20:01)
[2022-03-17] MEDS: LEVOTHYROXINE SODIUM 88 MCG TABLET PO SCH (06:04)
[2022-03-17 07:23] LABS: Hematocrit (blood only) 34.6 % (42-52); Hemoglobin 11.4 g/dL (14.0-18.0); Mean Corpuscular Hemoglobin 28.1 pg (25-34); Mean Corpuscular Hgb Conc 32.9 g/dL (32-36); Mean Corpuscular Volume 85.2 fL (80-100); Mean Platelet Volume 9.1 fL (7.4-10.4); Platelet Count 300 K/uL (130-400); RDW Coefficient of Variation 14.3 % (11.5-14.5); RDW Standard Deviation 45.2 fL (36.4-46.3); Red Blood Count 4.06 M/uL (4.7-6.1)
[2022-03-17 07:40] LABS: Calcium 9.2 mg/dl (8.5-10.1); Creatinine Clr Calc Pharmacy 90.4 ml/min; Est GFR (African American) 74.1 ml/min; Est GFR (Non-African American) 63.9 ml/min; Magnesium 1.9 mg/dl (1.7-2.4); Phosphorus 3.5 mg/dl (2.5-4.9); Potassium 4.2 mmol/L (3.5-5.1)
[2022-03-17] MEDS ORDERED: INSULIN HUMAN NPH SC SCH ×2 (08:00→17:00)
[2022-03-17] MEDS: INSULIN ASPART PER UNIT SC SCH ×2 (08:54→11:55)
[2022-03-17] MEDS: GABAPENTIN 600 MG TAB PO SCH (08:58)
[2022-03-17] MEDS: CHOLECALCIFEROL 1,000 UNITS 25 MCG TAB PO SCH (08:59)
[2022-03-17] MEDS: carvediloL 12.5 MG TAB PO SCH (08:59)
[2022-03-17] MEDS: AZITHROMYCIN 250 MG TAB PO SCH (08:59)
[2022-03-17] MEDS: ASPIRIN 325 MG ECTAB PO SCH (08:59)
[2022-03-17] MEDS: AMOXICILLIN/CLAVULANATE 875 MG TAB PO SCH (08:59)
[2022-03-17] MEDS: CALCIUM 600MG + VIT D 400 IU TAB PO SCH (08:59)
[2022-03-17] MEDS: amLODIPine BESYLATE 5 MG TAB PO SCH (08:59)
[2022-03-17] MEDS: guaiFENesin 600 MG TABCR PO SCH (08:59)
[2022-03-17] MEDS: HEPARIN SOD 5,000 UNIT/0.5 ML VIAL SQ SCH (09:00)
--- NOTE | 2022-03-17 14:50 | Discharge Summary ---
Date of Service March 17, 2022 Admission HPI Per Admitting Provider This is a 66 yo M with PMHx of CAD, multiple heart catheterizations without stenting or acute findings, HTN, HLD, DM II, obesity with BMI of 37, hypothyroidism, neuropathy, who presents to the hospital with worsening con fusion, shortness of breath, and generalized malaise over the past week, worsening in the past 3 days. His and sister are present at bedside and support the history. His notes that they are currently in on vacation to visit his sister and typically reside in [place]. She notes that the patient has not quite been himself for the past few days. He agrees with this and states that his symptoms of shortness of breath and generalized malaise really started approximately 1 week ago, worsened within the last 3 days. He denies any fevers chills or sweats, he admits to feeling very fatigued and having difficulty doing minimal ADLs. His notes this morning he was confused to the point where he was unable to perform his own insulin injection which he typically does without any difficulties. At baseline he does not wear any supplemental O2 except for CPAP at bedtime. He is vaccinated against COVID x2 and with a booster. Patient denies any known sick contacts, and reports that he has also had a decreased appetite over the past few days. His bowels and urination habits are normal. He is currently requiring 4 L of O2 and maintaining sats in the mid 90s. This drops into the mid 80s whenever I reduced his O2 flow to 3 L at bedside with just conversation. He denies any chest pain, heaviness. He does not have any underlying lung diseases. WBC found to be 11.68, negative COVID, D-dimer is elevated at 2160, negative CTA of the chest, started on IV cefepime and will add doxycycline. Principal Diagnosis Acute respiratory failure with hypoxia LLL pneumonia Elevated troponin Acute kidney injury-resolved Discharge Exam CONSTITUTIONAL: Obese, vitals as above, generally well-appearing, NAD EYES: normal conjunctivae, no scleral icterus ENT: external ear and nose normal, MMM NECK: trachea midline, RESPIRATORY: clear to auscultation bilaterally, decreased breath sounds at left base with some crackles, no rales or wheezes, normal respiratory effort CARDIOVASCULAR: regular rate and rhythm, S1 and 2 heard without murmurs, gallops or rubs, no JVD, no peripheral edema CHEST: inspection of chest was normal GASTROINTESTINAL: soft, nontender, ND, no guarding MUSCULOSKELETAL: strength 5/5 throughout, head is normocephalic and atraumatic, neck supple, normal palpation of chest wall without tenderness SKIN: warm and dry NEUROLOGIC: CN 2-12 grossly intact, no sensory deficit, normal cognition, normal speech, no tremor PSYCHIATRIC: alert cooperative and oriented to person, place and time. Discharge Data Allergies Allergy/AdvReac Type Severity Reaction Status Date / Time ciprofloxacin Allergy Intermediate Hives Verified 03/14/22 15:22 Consultations 03/14/22 14:40 ED Decision to Admit Stat Ordered Studies 03/14/22 12:34 CT head/brain wo con Stat 03/14/22 13:38 CT angio chest PE protocol Stat 03/14/22 16:03 US venous doppler LE BI Routine Hospital Course (1) Acute respiratory failure with hypoxia: continues on supplemental oxygen for persistent hypoxia that is improved. Continue to encourage movement out of bed. Wean as tolerated (2) LLL pneumonia: Diabetic man with community-acquired pneumonia. Flu and COVID are negative. Sputum culture pending although patient has no cough at this time and is unable to expectorate sputum per his report. He feels much better today on IV antibiotics. TRansition to PO. No blood clot in the chest or legs with work-up. Continue antibiotics and supportive care. Cont to encourage ambulation. (3) HTN (hypertension): hold losartan and HCTZ for the time being. BP is controlled. Cont to monitor on telemetry . (4) Elevated troponin: elevated trop suggestive of demand ischemia in setting of acute pulmonary infection. echo reveals no acute wall motion abnormalities. patient denies chest pain/SOB no further workup at this time. (5) HLD (hyperlipidemia): chronic, stable. Cont statin therapy per home regimen. (6) Obesity (BMI 30-39.9): -Diet and exercise to be encouraged throughout hospital stay (7) DM (diabetes mellitus) type II controlled, neurological manifestation: -Hold home glimepiride and metformin, holding NovoLog 70/30 mix 37 units twice daily for now -Glycemic pharmacy consulted -Continue ISS with Accu-Cheks ACHS -A1C 7.6 with goal <7.0. Encourage close follow-up wtih his PCP regarding being more aggressive with therapy and lifestyle modifications. (8) Neuropathy: chronic, controlled, cont gabapentin per home regimen. (9) CIRO (acute kidney injury): Creat improved 1.7 to 1.5. FeNa is 0.4% indicating pre-renal azotemia. Possibly 2/2 hypovolemia although patient appears euvolemic and is eating well now. Was on diuretic and IVF have been given over the past two days. Diuretics and losartan held, and patient also received contrast two days ago so we may be seeing a contrast induced nephropathy to a certain extent. As we are improving, finish IVF bag today and repeat BMP in am. (10) DVT prophylaxis: Heparin full code Dispo-cont hospitalization pending resolution of hypoxia, pending PT/OT recommendations. Pt is from [place] ([facility]) and needs to travel back after discharge. 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 DO Sandeep Orourke Lc (11) Demand ischemia: Total Time Total Time Spent Total Time Spent (In Minutes): 60 Discharge Plan Discharge Items Patient Disposition: Home - Self-Care Reason For Visit: LLL PNEUMONIA Discharge Diagnosis: Acute respiratory failure with hypoxia LLL pneumonia Elevated troponin Acute kidney injury-resolved Condition on Discharge: Good Activity: Resume your previous activity Non-emergency contact: Primary Care Provider Call non-emergency contact if: you have any medication questions, your symptoms worsen, your pain is not controlled, your pain is worsening, your pain is unusual for you, your pain is concerning for you and you have a fever Follow-up/Referrals: Ty Mercado MD [Primary Care Provider] - Diet: Carb Consistent or DM2 Addtl Attending Provider Instructions: Please take all medications as instructed on discharge list below. It is recommended that you followup with your primary care physician within one week of hospital discharge to ensure you are still tolerating the antibiotics well and are recovering well after returning home. A repeat chest xray is recommended in 4-6 weeks to ensure complete resolution of pneumonia. It was a pleasure taking care of you! Please call if you have any questions or problems. You can reach a [facility] hospitalist on duty at [facility] 24 hours a day by calling [phone]. Take care of yourself. DO Sandeep Orourke Lc Pending Studies at Discharge: No Stand-Alone Forms: My [facility] Medications and DC Order Prescriptions: New amoxicillin-pot clavulanate 875-125 mg tablet 1 tab PO Q12H Qty: 10 RF: 0 azithromycin 500 mg tablet 500 mg PO DAILY Qty: 5 RF: 0 Continued metformin 500 mg tablet See Rx Instructions .ROUTE .COMPLEX RF: 0 gabapentin 600 mg Tablet 600 mg PO BID RF: 0 atorvastatin 20 mg tablet 20 mg PO HS RF: 0 carvedilol 12.5 mg Tablet 12.5 mg PO BID RF: 0 levothyroxine 88 mcg Tablet 88 mcg PO DAILY RF: 0 aspirin 325 mg Tablet,Delayed Release (Dr/Ec) 325 mg PO DAILY RF: 0 amlodipine 10 mg Tablet 10 mg PO DAILY RF: 0 glimepiride 4 mg Tablet 4 mg PO BID RF: 0 hydrochlorothiazide 25 mg tablet 25 mg PO DAILY RF: 0 losartan 100 mg tablet 100 mg PO DAILY RF: 0 cholecalciferol (vitamin D3) [Vitamin D3] 25 mcg (1,000 unit) Capsule 25 mcg PO DAILY RF: 0 insulin aspart U-100 [Novolog Flexpen U-100 Insulin] 100 unit/mL (3 mL) insulin pen 0 sliding scale dose SUBCUT ACHS RF: 0 calcium carbonate-vitamin D3 [Calcium 600 + D(3)] 600 mg-10 mcg (400 unit) Tablet 1 tab PO DAILY RF: 0 Glucosamine Chondroitin 550-30-1 mg Capsule 1 cap PO TID RF: 0 insulin asp prt-insulin aspart [Novolog Mix 70-30 U-100 Insuln] 100 unit/mL (70-30) solution 37 unit SUBCUT BID RF: 0 Discharge Orders: Discharge Order (Routine); Ordered 03/17/22 Ordered By: Maricarmen Alexis/Other Patient Handouts: Managing Type 2 Diabetes Admission Data Admit Date/Time: 03/14/22 15:24 Attending Provider: Maricarmen Rose Admit Provider: Henry Rodriguez Primary Care Provider: Ty Mercado Other Providers: Henry Rodriguez Other Interventions: Discharge Summary Assessment (RN) Last Done: 03/17/22 15:14
[2022-03-18] MEDS ORDERED: INSULIN HUMAN NPH SC SCH (08:00)
== END 2022-03-17 16:00 | disposition home or self-care (01) | DRG 193 ==
LOC: ED 11:41 → EDINP 15:24 → SUATTDRO 15:24 → 1E 23:15 → 2S 03-16 23:26